=== PATIENT | male | born 1990 | race Caucasian/White ===

== ENCOUNTER 2019-12-21 11:49 | Emergency (ER) | payer OTHER ==
[2019-12-21] MEDS ORDERED: Bacitracin/Neomycin/Polymyxin B Oint 0.9 GM U/D Packet TOP ONE (12:34)
--- NOTE | 2019-12-21 12:41 | EDM.PDOC ---
ED HPI GENERAL MEDICAL PROBLEM - General Chief Complaint: Laceration Stated Complaint: left index finger laceration Time Seen by Provider: 12/21/19 11:55 Source of Information: Reports: Patient History Limitations: Reports: No Limitations - History of Present Illness INITIAL COMMENTS - FREE TEXT/NARRATIVE: Smashed tip of left index finger in equipment Tetanus UTD Onset: Today, Sudden Duration: Hour(s): Location: Reports: Upper Extremity, Left Severity: Moderate Context: Reports: Trauma Treatments DYNAMO TENDER: Reports: Cold Therapy, Dressing(s) Left Finger-Index Pain Score (Numeric/FACES): 4 - Related Data Allergies Allergy/AdvReac Type Severity Reaction Status Date / Time No Known Allergies Allergy Verified 12/21/19 11:50 Home Meds: Home Meds Ibuprofen 800 mg PO Q6HR PRN 12/21/19 [History] Past Medical History - Past Health History Medical/Surgical History: Denies Medical/Surgical History Social & Family History - Tobacco Use Smoking Status *Q: Current Every Day Smoker Years of Tobacco use: 10 Packs/Tins Daily: 1 Used Tobacco, but Quit: No Second Hand Smoke Exposure: Yes - Caffeine Use Caffeine Use: Reports: Coffee, Energy Drinks, Soda - Recreational Drug Use Recreational Drug Use: Yes Drug Use in Last 12 Months: Yes Recreational Drug Type: Reports: Marijuana/Hashish Recreational Drug Use Frequency: Rarely ED ROS GENERAL - Review of Systems Review Of Systems: See Below Musculoskeletal: Reports: Other (Smash injury to tip of left index finger 2 cm laceration) ED EXAM, SKIN/RASH Exam: See Below Extremities: Other (Smash injury to tip of left index finger 2 cm transverse laceration Hematoma under nail) ED SKIN PROCEDURES - Laceration/Wound Repair Left Digit - 2nd (Index) Appearance: Superficial Distal NVT: Neuro & Vascular Intact, No Tendon Injury Anesthetic Type: Digital Local Anesthesia - Lidocaine (Xylocaine): 1% Plain Local Anesthetic Volume: 4cc Skin Prep: Chlorhexidine (Hibiciens), Providone-Iodine (Betadine) Exploration/Debridement/Repair: Wound Explored Closed with: Sutures Lac/Wound length In cm: 2 Suture Size: 3-0 # of Sutures: 4 Suture Type: Nylon Sterile Dressing Applied: Nurse Tetanus Status Addressed: Yes Complications: No Progress/Comments: Splint placed Hematoma under nail drained using electrocautery Course - Vital Signs Last Recorded V/S: Last Vital Signs Temp 98.7 F 12/21/19 11:53 Pulse 75 12/21/19 11:53 Resp 22 H 12/21/19 11:53 BP 153/106 H 12/21/19 11:53 Pulse Ox 98 12/21/19 11:53 - Orders/Labs/Meds Orders: Active Orders 24 hr Category Date Time Status Fingers Second Digit Lt F1 [CR] Stat Exams 12/21/19 12:14 Ordered Meds: Medications Discontinued Medications Generic Name Dose Route Start Last Admin Trade Name Alejandra PRN Reason Stop Dose Admin Lidocaine HCl 5 ml 12/21/19 12:07 12/21/19 12:09 Xylocaine-Mpf 1% INJECT 12/21/19 12:08 5 ml ONETIME ONE Administration Neomycin/Polymyxin/Bacitracin 1 each 12/21/19 12:34 Triple Antibiotic Oint TOP 12/21/19 12:35 ONETIME ONE - Re-Assessments/Exams Free Text/Narrative Re-Assessment/Exam: 12/21/19 12:40 Xray: Possible small fracture of tuft Await xray report Departure - Departure Time of Disposition: 12:45 Disposition: Home, Self-Care 01 Clinical Impression: Finger laceration Qualifiers: Encounter type: initial encounter Finger: index finger Damage to nail status: with damage Foreign body presence: without foreign body Laterality: left Qualified Code(s): S61.311A - Laceration without foreign body of left index finger with damage to nail, initial encounter - Discharge Information *PRESCRIPTION DRUG MONITORING PROGRAM REVIEWED*: Not Applicable *COPY OF PRESCRIPTION DRUG MONITORING REPORT IN PATIENT LLOYD: Not Applicable Instructions: Laceration Care, Adult, Sutures, Anirudh, or Adhesive Wound Closure, [id number] Referrals: Peace Peck NP [Primary Care Provider] - Additional Instructions: Keep wound clean Sutures out in 10 days Sepsis Event Note (ED) - Evaluation Sepsis Screening Result: No Definite Risk - Focused Exam Vital Signs: Vital Signs Temp Pulse Resp BP Pulse Ox 12/21/19 11:53 98.7 F 75 22 H 153/106 H 98 - My Orders Last 24 Hours: My Active Orders 12/21/19 12:14 Fingers Second Digit Lt F1 [CR] Stat - Assessment/Plan Last 24 Hours: My Active Orders 12/21/19 12:14 Fingers Second Digit Lt F1 [CR] Stat
== END 2019-12-21 12:55 | disposition home or self-care (01) ==
LOC: LL.ED 11:49
DX: S61.311A Laceration without foreign body of left index finger with damage to nail, initial encounter (principal); F17.210 Nicotine dependence, cigarettes, uncomplicated; W23.0XXA Caught, crushed, jammed, or pinched between moving objects, initial encounter
CPT/HCPCS: 11740; 12001; 73140-F1; 99283; 99283-25; J2001